=== PATIENT | male | born 1965 | race Caucasian/White ===

== ENCOUNTER → 2017-03-05 | Day surgery (SDC) | payer OTHER ==
--- NOTE | 2017-03-05 15:06 | RADIOLOGY REPORT (SQ) ---
EXAM DESCRIPTION: ARTHRO HIP INJ W/ANESTHESIA; FLUORO/NEEDLE PLACEMENT COMPLETED DATE/TIME: 03/05/2017 2:33 pm; 03/05/2017 2:34 pm REASON FOR STUDY: M25.851OTHER SPECIFIED JOINT DISORDERS, RIGHT HIP M25.851 OTHER SPECIFIED JOINT D ISORDERS, RIGHT HIP COMPARISON: None. FLUOROSCOPY TIME: 10 seconds 1 digital radiographic image saved to PACS. LIMITATIONS: None. PROCEDURE: Procedure, risks, benefits and alternatives explained to patient who then gave written c onsent. The right hip was marked and a time-out was called for correct marking verification. Entry site marked using fluoroscopic guidance. Hip prepped and draped using sterile technique. Local ane sthesia achieved using 9 mm of 1% lidocaine injection. 22 gauge spinal needle introduced into the isac int space under direct fluoroscopic visualization. Non-ionic contrast instilled to confirm intra-art icular position. Dilute gadolinium solution then injected. Needle removed and entry site covered w ith sterile bandage. No immediate complications noted. TECHNIQUE: Digital images acquired during fluoroscopy and stored on PACS. Patient immediately take n to the MR suite for additional imaging. INJECTION LOCATION: Right hip joint space CONTRAST TYPE AND AMOUNT: 1 mL of Isovue-300 injected to confirm intra-articular needle placement fol lowed by 12 mL of dilute ProHance gadolinium NUMBER OF IMAGES: 1 digital radiographic image IMPRESSION: SUCCESSFUL NEEDLE PLACEMENT AND INJECTION FOR RIGHT HIP MR ARTHROGRAM. COMMENT: Quality ID [id number]: Final reports for procedures using fluoroscopy that document radiation exp osure indices, or exposure time and number of fluorographic images (if radiation exposure indices are not available) TECHNICAL DOCUMENTATION: JOB ID: [id number] [employer]- All Rights Reserved
--- NOTE | 2017-03-05 16:23 | RADIOLOGY REPORT (SQ) ---
EXAM DESCRIPTION: MRI RT LOWER JOINT WITH COMPLETED DATE/TIME: 03/05/2017 3:11 pm REASON FOR STUDY: M25.851 OTHER SPECIFIED JOINT DISORDERS, RIGHT HIP M25.851 OTHER SPECIFIED JOINT DISORDERS, RIGHT HIP COMPARISON: None. TECHNIQUE: Post arthrogram imaging is performed using T1 and T1 and T2 fat saturated sequences of th e pelvis and specific hip of interest. LIMITATIONS: None. FINDINGS: RIGHT HIP: JOINT DISTENSION: Adequate. No loose body. BONE MARROW: Minimal edema less subcortical cyst formation in the anterior right acetabular roof best shown on sagittal series 7, image 15 FEMORAL HEAD, NECK, AND ACETABULUM: No occult fracture. No osteophytes or subchondral cysts. Normal s phericity of femoral head/neck junction. No acetabular dysplasia. No evidence of femoroacetabular imp ingement. PUBIC RAMI AND ISCHIUM: No occult fracture. SACRUM AND REID: SI joints normal in signal. No occult fracture. LABRUM AND CARTILAGE: Articular cartilage of the right hip is intact. However, there is a tear of th e anterior 3rd of the acetabular labrum, with mild reactive subcortical edema in the anterior edge of the right bony acetabular roof. This best shown on sagittal series 7, image 14 and 15, and coronal series 6 images 9 through 13. Very mild right acetabular roof bony spurring. MUSCLES AND SOFT TISSUES: Adductors and piriformis normal. Abductors and greater trochanteric bursa n ormal without edema or fluid. Iliopsoas bursa without fluid. Hamstring attachments without edema or t ear. PELVIC SOFT TISSUES: No masses or adenopathy. SCIATIC NERVE: Identified without masses. OTHER: On the whole pelvis images, the SI joints are unremarkable. Normal left hip. IMPRESSION: Torn anterior right acetabular labrum with minimal subcortical cyst/subcortical edema fo rmation along the anterior right acetabular roof TECHNICAL DOCUMENTATION: JOB ID: [id number] [employer]- All Rights Reserved
== END ==
LOC: RAD 13:27
PROVIDERS: ATTEND Orthopaedic Surgery
PROC: BQ00ZZZ Plain Radiography of Right Hip (ICD-10-PCS; principal; 2017-03-05)
DX: M25.851 Other specified joint disorders, right hip (principal)
CPT/HCPCS: 73722; 77002; 27095; A9576